=== PATIENT | female | born 1940 | race Caucasian/White ===

== ENCOUNTER 2021-09-26 11:24 | Emergency (ER) | payer OTHER ==
[~2021-09-26] VITALS: Ht 157.5 cm; Wt 65.8 kg
--- NOTE | 2021-09-26 12:09 | NUR ---
WORSENING BACK PAIN X 2 WEEKS,NO TRAUMA. BREATHING IS REGULAR AND UNLABORED. PT PROVIDED WITH WARM BLANKET FOR COMFORT. AWAITING MD THORPE.
--- NOTE | 2021-09-26 12:18 | NUR ---
DR NGUYEN AT BEDSIDE
[2021-09-26] MEDS ORDERED: HYDROCODONE/APAP 5/325MG TABLET PO ONE (12:30)
--- NOTE | 2021-09-26 12:32 | NUR ---
PT TAKEN TO CT
[2021-09-26] MEDS ORDERED: HYDROCODONE/APAP 5/325MG TABLET ONE (12:54)
[2021-09-26 14:00] VITALS: BP 158/89
--- NOTE | 2021-09-26 14:31 | NUR ---
SPOKE WITH PT [employer] ABELINO [phone]
--- NOTE | 2021-09-26 17:07 | NUR ---
PT GOING BACK TO [facility] CALL[facility]
--- NOTE | 2021-09-26 17:09 | NUR ---
[address] [place] [id number]
--- NOTE | 2021-09-26 17:12 | NUR ---
[facility] CALLED FOR TRANSPORT ETA 60 MINS PER LINDA.
--- NOTE | 2021-09-26 17:59 | NUR ---
TRANSPORTATION HAS ARRIVED, REPORT WAS GIVEN, THEY WILL BE TRANSPORTING HER BACK TO [facility]. PT IS BEING DISCHARGED IN STABLE CONDITION, STATED HER PAIN IS AT A TOLERABLE LEVEL.
== END 2021-09-26 18:02 ==
LOC: ER 12:01
DX: M54.50 Low back pain, unspecified (principal); M54.6 Pain in thoracic spine; I10 Essential (primary) hypertension; Z98.890 Other specified postprocedural states; Z90.89 Acquired absence of other organs; Z60.2 Problems related to living alone
CPT/HCPCS: 72131-TC